=== PATIENT | male | born 1995 | race Native Hawaiian/Other Pacific Islander ===

== ENCOUNTER 2022-12-22 10:35 | Emergency (ER) | payer OTHER ==
[~2022-12-22] VITALS: Ht 177.8 cm; Wt 77.1 kg
== END 2022-12-22 11:17 | disposition home or self-care (01) ==
LOC: ED 10:35
DX: H10.9 Unspecified conjunctivitis (principal); H57.12 Ocular pain, left eye; F17.210 Nicotine dependence, cigarettes, uncomplicated
CPT/HCPCS: 99283